=== PATIENT | female | born 1970 | race African-American/Black ===

== ENCOUNTER 2024-03-10 07:19 | Emergency (ER) | payer OTHER ==
[~2024-03-10] VITALS: Ht 160 cm; Wt 86.0 kg
[2024-03-10 07:25] VITALS: O2SAT 98
[2024-03-10 08:22] LABS: BASOPHILS % 0.5 % (0.0-2.0); EOSINOPHILS % 2.6 % (0.0-5.0); HEMATOCRIT. 38.9 % (36.0-48.0); HEMOGLOBIN. 12.8 g/dL (12.0-16.0); LYMPHOCYTES % 26.3 % (20.0-50.0); MEAN CORPUSCULAR HEMOGLOBIN 28.4 pg (28.0-32.0); MEAN CORPUSCULAR HGB CONC 32.9 g/dL (31.0-37.0); MEAN CORPUSCULAR VOLUME 86.4 fL (81.0-99.0); MEAN PLATELET VOLUME 8.9 fl (7.4-10.4); MONOCYTES % 7.3 % (2.0-8.0); NEUTROPHILS % 63.3 % (40.0-76.0); PLATELET 323 x1000/uL (130-400); RED CELL DISTRIBUTION WIDTH 14.9 % (11.6-14.6); WHITE BLOOD COUNT 7.9 x1000/uL (4.5-11.0)
[2024-03-10 08:37] LABS: CHLORIDE 108 mEq/L (98-107); POTASSIUM 4.4 mEq/L (3.5-5.1); SODIUM 141 mEq/L (136-145)
[2024-03-10 08:38] LABS: CALCIUM 9.7 mg/dL (8.7-10.4); CARBON DIOXIDE 27 mEq/L (21-32)
[2024-03-10 08:43] LABS: CREATININE 1.1 mg/dL (0.6-1.0); GLUCOSE 93 mg/dL (70-105); TROPONIN I HIGH SENSITIVITY 15 ng/L (3.0-34); UREA NITROGEN BLOOD 14 mg/dL (9-23)
[2024-03-10] MEDS ORDERED: DEXAMETHASONE 0.5MG/5ML ORAL SYR PO ONE (09:00)
[2024-03-10] MEDS: ALBUTEROL (0.083%) 2.5MG/3ML NEB HHN ONE (09:40)
[2024-03-10] MEDS: IPRATROPIUM/ALBUTEROL 0.5-3(2.5)MG/3ML NEB HHN ONE (09:40)
[2024-03-10] MEDS: DEXAMETHASONE 10 MG/ML VIAL PO ONE (09:40)
[2024-03-10 09:41] VITALS: PULSE 55; RESP 20
[2024-03-10 13:16] LABS: TROPONIN I HIGH SENSITIVITY 12 ng/L (3.0-34)
[2024-03-10] MEDS ORDERED: P50 MT (13:29)
[2024-03-10] MEDS ORDERED: ALBU18HF2 IH (13:29)
[2024-03-10 13:49] VITALS: BP 148/87; PULSE 58; RESP 20; TEMP 36.66960; O2SAT 98
== END 2024-03-10 13:54 | disposition home or self-care (01) ==
LOC: ER 07:50
DX: R06.02 Shortness of breath (principal); R07.89 Other chest pain; J40 Bronchitis, not specified as acute or chronic; Z72.0 Tobacco use
CPT/HCPCS: 80048; 85025; 84484; 36415; 71045; 94640; 93005; 99285; J1100; Z7610 ×4; J8540